=== PATIENT | female | born 2000 | race Caucasian/White ===

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

== ENCOUNTER 2019-08-10 21:35 | Emergency (ER) | payer OTHER ==
[~2019-08-10] VITALS: Ht 162.6 cm; Wt 72.6 kg
== END 2019-08-10 22:37 | disposition home or self-care (01) ==
LOC: ER 21:35
DX: J06.9 Acute upper respiratory infection, unspecified (principal)
CPT/HCPCS: 71046; 99283-25

== ENCOUNTER → 2019-08-10 | Outpatient (CLI) | payer OTHER ==
[2019-08-10 11:43] LABS: BASOPHILS ABSOLUTE AUTO 0.03 K/mm3 (0.00-0.23); BASOPHILS PERCENT AUTO 0 % (0-2); EOSINOPHILS ABSOLUTE AUTO 0.02 K/mm3 (0.00-0.68); EOSINOPHILS PERCENT AUTO 0 % (0-6); Hematocrit 38.7 % (33.0-51.0); Hemoglobin 13.1 g/dL (11.5-16.0); IMMATURE GRAN ABSOLUTE AUTO 0.02 K/mm3 (0.00-0.10); IMMATURE GRAN PERCENT AUTO 0 % (0-1); LYMPHOCYTES ABSOLUTE AUTO 0.25 K/mm3 (0.84-5.20); LYMPHOCYTES PERCENT AUTO 4 % (21-46); MONOCYTES ABSOLUTE AUTO 0.41 K/mm3 (0.16-1.47); MONOCYTES PERCENT AUTO 6 % (4-13); Mean Corpuscular HGB 30.7 pg (26.0-34.0); Mean Corpuscular HGB Conc 33.9 g/dL (31.5-36.5); Mean Corpuscular Volume 91 fL (80-100); Mean Platelet Volume 11.5 fL (9.1-12.4); NEUTROPHILS ABSOLUTE AUTO 6.29 K/mm3 (1.96-9.15); NEUTROPHILS PERCENT AUTO 90 % (41-73); Platelet Count 190 K/mm3 (150-400); RDW Coefficient Variation 12.5 % (11.7-14.2); RDW Standard Deviation 41.5 fL (35.1-46.3); Red Blood Cell Count 4.27 M/mm3 (3.80-5.20); White Blood Cell Count 7.02 K/mm3 (4.00-11.30)
[2019-08-10 12:04] LABS: Alanine Aminotransfer (ALT/SGP 82 U/L (12-78); Albumin, Blood 4.2 g/dL (3.4-5.0); Albumin/Globulin Ratio 1.3 (0.8-1.8); Alk Phos 62 U/L (40-126); Anion Gap 10 mmol/L (6-16); Aspartate Aminotrans (AST/SGOT 36 U/L (12-37); Bilirubin, Total 0.6 mg/dL (0.1-1.0); Blood Urea Nitrogen 10 mg/dL (8-24); Bun/Creatinine Ratio 12.8 (12.0-20.0); CO2, Blood 23 mmol/L (21-32); Calcium, Blood 9.4 mg/dL (8.5-10.1); Chloride, Blood 106 mmol/L (98-108); Creatinine, Blood 0.78 mg/dL (0.40-1.00); Globulin, Blood 3.3 g/dL (2.2-4.0); Glomerular Filtration Rate >60 (60-); Glucose, Blood 93 mg/dL (70-99); Sodium, Blood 139 mmol/L (136-145); Total Protein, Blood 7.5 g/dL (6.4-8.2)
== END | disposition home or self-care (01) ==
LOC: LAB SHORT 11:37 → LAB EV 11:37
PROVIDERS: Physician Assistant Medical
DX: R50.9 Fever, unspecified (principal)
CPT/HCPCS: 80053; 85025

== ENCOUNTER → 2020-08-07 | Outpatient (CLI) | payer OTHER ==
[2020-08-07 10:58] LABS: BASOPHILS ABSOLUTE AUTO 0.02 K/mm3 (0.00-0.23); BASOPHILS PERCENT AUTO 0 % (0-2); EOSINOPHILS ABSOLUTE AUTO 0.13 K/mm3 (0.00-0.68); EOSINOPHILS PERCENT AUTO 2 % (0-6); Hematocrit 36.3 % (33.0-51.0); Hemoglobin 12.1 g/dL (11.5-16.0); IMMATURE GRAN ABSOLUTE AUTO 0.03 K/mm3 (0.00-0.10); IMMATURE GRAN PERCENT AUTO 1 % (0-1); LYMPHOCYTES ABSOLUTE AUTO 1.87 K/mm3 (0.84-5.20); LYMPHOCYTES PERCENT AUTO 29 % (21-46); MONOCYTES ABSOLUTE AUTO 0.53 K/mm3 (0.16-1.47); MONOCYTES PERCENT AUTO 8 % (4-13); Mean Corpuscular HGB 29.7 pg (26.0-34.0); Mean Corpuscular HGB Conc 33.3 g/dL (31.5-36.5); Mean Corpuscular Volume 89 fL (80-100); Mean Platelet Volume 11.4 fL (9.1-12.4); NEUTROPHILS ABSOLUTE AUTO 3.99 K/mm3 (1.96-9.15); NEUTROPHILS PERCENT AUTO 61 % (41-73); Platelet Count 209 K/mm3 (150-400); RDW Coefficient Variation 12.3 % (11.7-14.2); RDW Standard Deviation 39.9 fL (35.1-46.3); Red Blood Cell Count 4.07 M/mm3 (3.80-5.20); White Blood Cell Count 6.57 K/mm3 (4.00-11.30)
[2020-08-07 10:59] LABS: Alanine Aminotransfer (ALT/SGP 26 U/L (12-78); Albumin, Blood 4.2 g/dL (3.4-5.0); Albumin/Globulin Ratio 1.3 (0.8-1.8); Alk Phos 58 U/L (40-126); Anion Gap 11 mmol/L (6-16); Aspartate Aminotrans (AST/SGOT 12 U/L (12-37); Bilirubin, Total 0.3 mg/dL (0.1-1.0); Blood Urea Nitrogen 11 mg/dL (8-24); CO2, Blood 25 mmol/L (21-32); Calcium, Blood 9.1 mg/dL (8.5-10.1); Chloride, Blood 103 mmol/L (98-108); Creatinine, Blood 0.55 mg/dL (0.40-1.00); Globulin, Blood 3.3 g/dL (2.2-4.0); Glomerular Filtration Rate >60 (60-); Glucose, Blood 99 mg/dL (70-99); Sodium, Blood 139 mmol/L (136-145); Total Protein, Blood 7.5 g/dL (6.4-8.2)
== END | disposition home or self-care (01) ==
LOC: LAB EV 10:44
PROVIDERS: Physician Assistant Medical
DX: R19.7 Diarrhea, unspecified (principal); R10.84 Generalized abdominal pain
CPT/HCPCS: 80053; 84702; 85025

== ENCOUNTER → 2021-04-14 | Outpatient (CLI) | payer OTHER ==
[2021-04-16 15:18] LABS: CORONAVIRUS (COVID19) CSH-NRL Negative (Negative)
== END | disposition home or self-care (01) ==
LOC: LAB SHORT 16:35 → LAB 16:35
PROVIDERS: Physician Assistant
DX: Z20.822 Contact with and (suspected) exposure to COVID-19 (principal)
CPT/HCPCS: U0003

== ENCOUNTER 2021-05-09 16:36 | Inpatient (IN) | payer OTHER ==
[~2021-05-09] VITALS: Ht 162.6 cm; Wt 102.0 kg
[2021-05-09] MEDS ORDERED: PRENATAL TABLE1 EAC2 PO (17:07)
[2021-05-09] MEDS ORDERED: ASPI81CH PO (17:08)
[2021-05-09 17:47] LABS: BASOPHILS ABSOLUTE AUTO 0.02 K/mm3 (0.00-0.23); BASOPHILS PERCENT AUTO 0 % (0-2); EOSINOPHILS ABSOLUTE AUTO 0.11 K/mm3 (0.00-0.68); EOSINOPHILS PERCENT AUTO 1 % (0-6); Hematocrit 32.8 % (33.0-51.0); Hemoglobin 10.3 g/dL (11.5-16.0); IMMATURE GRAN ABSOLUTE AUTO 0.06 K/mm3 (0.00-0.10); IMMATURE GRAN PERCENT AUTO 1 % (0-1); LYMPHOCYTES ABSOLUTE AUTO 1.58 K/mm3 (0.84-5.20); LYMPHOCYTES PERCENT AUTO 15 % (21-46); MONOCYTES ABSOLUTE AUTO 0.64 K/mm3 (0.16-1.47); MONOCYTES PERCENT AUTO 6 % (4-13); Mean Corpuscular HGB 26.1 pg (26.0-34.0); Mean Corpuscular HGB Conc 31.4 g/dL (31.5-36.5); Mean Corpuscular Volume 83 fL (80-100); NEUTROPHILS PERCENT AUTO 78 % (41-73); Platelet Count 193 K/mm3 (150-400); RDW Coefficient Variation 13.9 % (11.7-14.2); RDW Standard Deviation 42.5 fL (35.1-46.3); Red Blood Cell Count 3.94 M/mm3 (3.80-5.20); White Blood Cell Count 10.81 K/mm3 (4.00-11.30)
[2021-05-09 17:53] LABS: Mean Platelet Volume 13.4 fL (9.1-12.4)
[2021-05-12] MEDS ORDERED: IBUP800 PO (17:01)
[2021-05-12] MEDS ORDERED: DOCU100 PO (17:01)
[2021-05-13 05:21] LABS: Hematocrit 30.6 % (33.0-51.0); Hemoglobin 9.7 g/dL (11.5-16.0); Mean Corpuscular HGB 26.5 pg (26.0-34.0); Mean Corpuscular HGB Conc 31.7 g/dL (31.5-36.5); Mean Corpuscular Volume 84 fL (80-100); Mean Platelet Volume 12.6 fL (9.1-12.4); Platelet Count 203 K/mm3 (150-400); RDW Coefficient Variation 14.1 % (11.7-14.2); RDW Standard Deviation 43.2 fL (35.1-46.3); Red Blood Cell Count 3.66 M/mm3 (3.80-5.20); White Blood Cell Count 13.91 K/mm3 (4.00-11.30)
--- NOTE | 2021-05-13 16:54 | NUR ---
PT AWAKEN TO DISCUSS D/C TEACHING. PT DESIRES TO READ THROUGH D/C INSTRUCTIONS AND REQUESTS STAFF TO FEED NB THIS FEED WHILE SHE IS STILL WAKING UP. DISCUSSED THE IMPORTANCE OF HER AND FOB BEING INVOLVED WITH FEEDINGS. PT VERBALIZES UNDERSTANDING. PLAN TO D/C TO BOARDER STATUS TONIGHT. PT DECLINES NEED FOR ANY PAIN RX PRIOR TO D/C. SCRIPTS GIVEN.
--- NOTE | 2021-05-13 17:28 | NUR ---
D/C INSTRUCTIONS DISCUSSED AND SIGNED. PT REPORTS NO QUESTIONS AT THIS TIME. DENIES PAIN. ANAIS SELF CARE WELL. INSTRUCTED THAT SHE WILL BE ASSISTED WITH NB CARE. PT VERBALIZES UNDERSTANDING. NO QUESTIONS. . PT D/C TO BOARDER STATUS
== END 2021-05-13 17:30 | disposition home or self-care (01) | DRG 806 ==
LOC: OBS 16:36 → BC 16:37 → OBS 16:40 → BC 16:45
PROVIDERS: ADMIT Advanced Practice Midwife
PROC: 10E0XZZ Delivery of Products of Conception, External Approach (ICD-10-PCS; principal; 2021-05-12)
PROC: 3E033VJ Introduction of Other Hormone into Peripheral Vein, Percutaneous Approach (ICD-10-PCS; 2021-05-12)
PROC: 3E0P7VZ Introduction of Hormone into Female Reproductive, Via Natural or Artificial Opening (ICD-10-PCS; 2021-05-12)
PROC: 10907ZC Drainage of Amniotic Fluid, Therapeutic from Products of Conception, Via Natural or Artificial Opening (ICD-10-PCS; 2021-05-12)
PROC: 00HU33Z Insertion of Infusion Device into Spinal Canal, Percutaneous Approach (ICD-10-PCS; 2021-05-12)
PROC: 3E0R3BZ Introduction of Anesthetic Agent into Spinal Canal, Percutaneous Approach (ICD-10-PCS; 2021-05-12)
PROC: 3E0R3NZ Introduction of Analgesics, Hypnotics, Sedatives into Spinal Canal, Percutaneous Approach (ICD-10-PCS; 2021-05-12)
PROC: 0HQ9XZZ Repair Perineum Skin, External Approach (ICD-10-PCS; 2021-05-12)
DX: O24.420 Gestational diabetes mellitus in childbirth, diet controlled (principal); D62 Acute posthemorrhagic anemia; Z37.0 Single live birth; Z3A.39 39 weeks gestation of pregnancy; Z67.10 Type A blood, Rh positive; O34.03 Maternal care for unspecified congenital malformation of uterus, third trimester; Q51.28 Other and unspecified doubling of uterus; O99.03 Anemia complicating the puerperium; O43.123 Velamentous insertion of umbilical cord, third trimester; O76 Abnormality in fetal heart rate and rhythm complicating labor and delivery; O70.0 First degree perineal laceration during delivery
CPT/HCPCS: 36415; 51702; 82947; 85025; 85027; 86850; 86900; 86901; A9270; J2001; J2405; J2590; J3010; J7120

== ENCOUNTER → 2022-06-30 | Outpatient (CLI) | payer OTHER ==
[~2022-06-30] MED LIST: ACET500 PO; ASPI81CH PO; DOCU100 PO; IBU800 MG PO; IBUP800 PO; PRENATAL TABLE1 EAC2 PO; Percocet 5-3251 EACH PO; ROXICODONE5 MG PO
== END | disposition home or self-care (01) ==
LOC: LAB 16:43 → LAB SHORT 16:43
DX: N39.0 Urinary tract infection, site not specified (principal)
CPT/HCPCS: 87077; 87086; 87186

== ENCOUNTER → 2022-12-27 | Outpatient (CLI) | payer OTHER | END | disposition home or self-care (01) | LOC: LAB SHORT 15:20 → LAB 15:20 | DX: N39.0 Urinary tract infection, site not specified (principal) | CPT/HCPCS: 87077; 87086; 87186 ==

== ENCOUNTER → 2023-01-24 | Outpatient (CLI) | payer OTHER | END | disposition home or self-care (01) | LOC: LAB SHORT 15:34 → LAB 15:34 | DX: N39.0 Urinary tract infection, site not specified (principal) | CPT/HCPCS: 87077; 87086; 87186 ==

== ENCOUNTER → 2023-08-25 | Outpatient (CLI) | payer OTHER | LOC: LAB SHORT 14:45 → LAB 14:45 | DX: R39.15 Urgency of urination (principal) | CPT/HCPCS: 87077; 87086; 87186 ==

== ENCOUNTER → 2024-02-20 | Outpatient (CLI) | payer OTHER | END | disposition home or self-care (01) | LOC: LAB 12:36 → LAB SHORT 12:36 | DX: N39.0 Urinary tract infection, site not specified (principal) | CPT/HCPCS: 87086 ==

== ENCOUNTER 2024-06-19 01:46 | Observation (INO) | payer OTHER ==
[~2024-06-19] VITALS: Ht 160 cm; Wt 103.0 kg
[2024-06-19 01:55] VITALS: BP 117/59
[2024-06-19] MEDS ORDERED: Lactated Ringer's 1,000 ML IV ONE (02:30)
[2024-06-19 03:11] LABS: BASOPHILS ABSOLUTE AUTO 0.04 K/mm3 (0.00-0.23); BASOPHILS PERCENT AUTO 0 % (0-2); EOSINOPHILS ABSOLUTE AUTO 0.14 K/mm3 (0.00-0.68); EOSINOPHILS PERCENT AUTO 1 % (0-6); Hematocrit 35.3 % (33.0-51.0); Hemoglobin 11.8 g/dL (11.5-16.0); IMMATURE GRAN ABSOLUTE AUTO 0.12 K/mm3 (0.00-0.10); IMMATURE GRAN PERCENT AUTO 1 % (0-1); LYMPHOCYTES PERCENT AUTO 25 % (21-46); MONOCYTES ABSOLUTE AUTO 0.84 K/mm3 (0.16-1.47); MONOCYTES PERCENT AUTO 8 % (4-13); Mean Corpuscular HGB 29.6 pg (26.0-34.0); Mean Corpuscular HGB Conc 33.4 g/dL (31.5-36.5); Mean Corpuscular Volume 89 fL (80-100); Mean Platelet Volume 12.2 fL (9.1-12.4); NEUTROPHILS ABSOLUTE AUTO 7.17 K/mm3 (1.96-9.15); NEUTROPHILS PERCENT AUTO 64 % (41-73); Platelet Count 177 K/mm3 (150-400); RDW Standard Deviation 38.6 fL (35.1-46.3); Red Blood Cell Count 3.99 M/mm3 (3.80-5.20); White Blood Cell Count 11.11 K/mm3 (4.00-11.30)
[2024-06-19] MEDS ORDERED: Terbutaline Sulfate 1MG / ML 1 ML Amp SC ONE (04:50)
[2024-06-19 07:15] VITALS: BP 119/61
[2024-06-19] MEDS ORDERED: Zolpidem Tartrate 10 MG Tab PO ONE (08:00)
[2024-06-19 10:51] VITALS: BP 114/55
[2024-06-19 13:33] VITALS: BP 118/68
== END 2024-06-19 14:15 | disposition home or self-care (01) ==
LOC: BC 01:46 → OBS 01:46 → BC 01:48 → OBS 05:12 → BC 05:13
PROVIDERS: ADMIT Family Medicine
DX: O47.03 False labor before 37 completed weeks of gestation, third trimester (principal); Z3A.36 36 weeks gestation of pregnancy
CPT/HCPCS: 36415; 59025; 81003; 85025; 86850; 86900; 86901; 99214; A9270; J7120

== ENCOUNTER 2024-07-11 07:09 | Inpatient (IN) | payer OTHER ==
[2024-07-11] VITALS (18 sets, daily range): BP systolic 78–151; BP diastolic 56–85
[~2024-07-11] VITALS: Ht 160 cm; Wt 104.0 kg
[2024-07-11] MEDS ORDERED: Lactated Ringer's 1,000 ML IV ONE ×2 (07:33→07:54)
[2024-07-11] MEDS ORDERED: CeFAZolin Sodium 2,000 MG in NS 100 ML IV SCH ×2 (07:45→16:00)
[2024-07-11] MEDS ORDERED: Metoclopramide HCl 5MG / ML 2ML Vial ONE (07:47)
[2024-07-11] MEDS ORDERED: Citric Acid/Sodium Citrate 30 ML BTL ONE (07:48)
[2024-07-11 07:59] LABS: BASOPHILS ABSOLUTE AUTO 0.04 K/mm3 (0.00-0.23); BASOPHILS PERCENT AUTO 0 % (0-2); EOSINOPHILS ABSOLUTE AUTO 0.07 K/mm3 (0.00-0.68); EOSINOPHILS PERCENT AUTO 1 % (0-6); Hematocrit 39.2 % (33.0-51.0); Hemoglobin 13.4 g/dL (11.5-16.0); IMMATURE GRAN PERCENT AUTO 1 % (0-1); LYMPHOCYTES ABSOLUTE AUTO 2.13 K/mm3 (0.84-5.20); LYMPHOCYTES PERCENT AUTO 18 % (21-46); MONOCYTES ABSOLUTE AUTO 0.85 K/mm3 (0.16-1.47); MONOCYTES PERCENT AUTO 7 % (4-13); Mean Corpuscular HGB 29.6 pg (26.0-34.0); Mean Corpuscular HGB Conc 34.2 g/dL (31.5-36.5); Mean Corpuscular Volume 87 fL (80-100); Mean Platelet Volume 12.9 fL (9.1-12.4); NEUTROPHILS ABSOLUTE AUTO 8.97 K/mm3 (1.96-9.15); NEUTROPHILS PERCENT AUTO 74 % (41-73); Platelet Count 168 K/mm3 (150-400); RDW Coefficient Variation 12.5 % (11.7-14.2); RDW Standard Deviation 39.5 fL (35.1-46.3); Red Blood Cell Count 4.53 M/mm3 (3.80-5.20); White Blood Cell Count 12.16 K/mm3 (4.00-11.30)
[2024-07-11] MEDS ORDERED: FentaNYL Citrate 50 MCG/ML 2 ML Injection ONE ×2 (08:14→08:22)
[2024-07-11] MEDS ORDERED: Bupivacaine 0.75%/Dext 8.25% 2 ML Amp IT ONE (08:23)
[2024-07-11] MEDS ORDERED: Oxytocin 10 Unit / ML Vial ONE (09:00)
--- NOTE | 2024-07-11 09:10 | NUR ---
07/11/24 0910 Shahrzad Solitario VIABLE BABY BOY BORN AT 0850.
[2024-07-11 09:15] LABS: PO2 Cord - Arterial < 14.0 mmHg (16-20)
[2024-07-11 09:27] LABS: pH Cord - Arterial 7.18 (7.28-7.35)
[2024-07-11 09:28] LABS: PCO2 Cord - Arterial 72.7 mmHg (40-50)
[2024-07-11 09:32] LABS: PO2 Cord - Venous 20.9 mmHg (28-32)
[2024-07-11] MEDS ORDERED: Naproxen 500 MG Tab PO PRN (10:10)
[2024-07-11] MEDS ORDERED: Morphine Sulfate 4 MG/1 ML Injection IV PRN (10:10)
[2024-07-11] MEDS ORDERED: Misoprostol 200 MCG Tab PR PRN (10:10)
[2024-07-11] MEDS ORDERED: Lanolin Cream TOP PRN (10:10)
[2024-07-11] MEDS ORDERED: Promethazine HCl 12.5 MG Supp PR PRN (10:15)
[2024-07-11] MEDS ORDERED: Acetaminophen 500 MG Tab PO PRN (10:15)
[2024-07-11] MEDS ORDERED: Promethazine HCl 25 MG Supp PR PRN (10:15)
[2024-07-11] MEDS ORDERED: Methylergonovine Maleate 0.2MG / ML 1ML Amp IM PRN (10:15)
[2024-07-11] MEDS ORDERED: Magnesium Hydroxide Conc 10 ML UDC PO PRN (10:15)
[2024-07-11] MEDS ORDERED: Simethicone 80 MG Chew PO PRN (10:15)
[2024-07-11] MEDS ORDERED: Lactated Ringer's 1,000 ML IV SCH (10:15)
[2024-07-11] MEDS ORDERED: Ondansetron HCl 2 MG / ML 2ML Vial IV PRN (10:20)
[2024-07-11] MEDS ORDERED: Promethazine HCl 25 MG Tab PO PRN (10:20)
[2024-07-11] MEDS ORDERED: OxyCODONE 5 mg/Acetamin 325 mg TABLET PO PRN (10:20)
[2024-07-11] MEDS ORDERED: OXYTOCIN/RINGER'S LACTATE 500 ML IV SCH (10:20)
[2024-07-11] MEDS ORDERED: Tranexamic Acid 100 ML IV PRN (10:25)
[2024-07-11] MEDS ORDERED: Ketorolac Tromethamine 30mg Vial IV SCH (11:00)
[2024-07-11] MEDS ORDERED: Metoclopramide HCl 5MG / ML 2ML Vial IV ONE (13:35)
[2024-07-11] MEDS ORDERED: Citric Acid/Sodium Citrate 30 ML BTL PO ONE (13:35)
[2024-07-11] MEDS ORDERED: Docusate Sodium 100 MG Cap PO SCH (21:00)
[2024-07-12] VITALS (7 sets, daily range): BP systolic 109–137; BP diastolic 55–62
[2024-07-12] MEDS ORDERED: Naproxen 500 MG Tab PO PRN (05:00)
[2024-07-12 06:49] LABS: BASOPHILS ABSOLUTE AUTO 0.03 K/mm3 (0.00-0.23); BASOPHILS PERCENT AUTO 0 % (0-2); EOSINOPHILS ABSOLUTE AUTO 0.08 K/mm3 (0.00-0.68); EOSINOPHILS PERCENT AUTO 1 % (0-6); Hematocrit 32.9 % (33.0-51.0); Hemoglobin 10.9 g/dL (11.5-16.0); IMMATURE GRAN ABSOLUTE AUTO 0.05 K/mm3 (0.00-0.10); IMMATURE GRAN PERCENT AUTO 0 % (0-1); LYMPHOCYTES ABSOLUTE AUTO 1.82 K/mm3 (0.84-5.20); LYMPHOCYTES PERCENT AUTO 16 % (21-46); MONOCYTES ABSOLUTE AUTO 0.89 K/mm3 (0.16-1.47); MONOCYTES PERCENT AUTO 8 % (4-13); Mean Corpuscular HGB 30.1 pg (26.0-34.0); Mean Corpuscular HGB Conc 33.1 g/dL (31.5-36.5); Mean Corpuscular Volume 91 fL (80-100); Mean Platelet Volume 12.4 fL (9.1-12.4); NEUTROPHILS ABSOLUTE AUTO 8.47 K/mm3 (1.96-9.15); NEUTROPHILS PERCENT AUTO 75 % (41-73); Platelet Count 129 K/mm3 (150-400); RDW Coefficient Variation 12.8 % (11.7-14.2); Red Blood Cell Count 3.62 M/mm3 (3.80-5.20); White Blood Cell Count 11.34 K/mm3 (4.00-11.30)
[2024-07-12 06:57] LABS: Glucose, Blood 84 mg/dL (70-99)
[2024-07-12] MEDS ORDERED: Ketorolac Tromethamine 30mg Vial IV ONE (07:45)
[2024-07-12] MEDS ORDERED: Prenatal Vit/FE Fumarate/FA 1 Tab PO SCH (09:00)
[2024-07-12] MEDS ORDERED: Magnesium Hydroxide Conc 10 ML UDC PO SCH (21:00)
[2024-07-13 04:14] VITALS: BP 126/61
[2024-07-13 04:23] VITALS: BP 126/61
[2024-07-13 09:08] VITALS: BP 118/57
[2024-07-13] MEDS ORDERED: IBUP800 PO (12:01)
[2024-07-13] MEDS ORDERED: Percocet 5-3251 EACH PO (12:02)
[2024-07-13] MEDS ORDERED: DOCU100 PO (12:02)
[2024-07-13 12:40] VITALS: BP 133/66
== END 2024-07-13 13:50 | disposition home or self-care (01) | DRG 787 ==
LOC: OBS 07:09 → BC 07:10 → OBS 07:38 → BC 07:40
PROVIDERS: Obstetrics & Gynecology; ADMIT Advanced Practice Midwife
PROC: 10D00Z1 Extraction of Products of Conception, Low, Open Approach (ICD-10-PCS; principal; 2024-07-11 09:30)
DX: O32.1XX0 Maternal care for breech presentation, not applicable or unspecified (principal); O47.1 False labor at or after 37 completed weeks of gestation; O99.891 Other specified diseases and conditions complicating pregnancy; O34.219 Maternal care for unspecified type scar from previous cesarean delivery; M54.9 Dorsalgia, unspecified; O34.211 Maternal care for low transverse scar from previous cesarean delivery; Z3A.39 39 weeks gestation of pregnancy; Z37.0 Single live birth; O36.63X0 Maternal care for excessive fetal growth, third trimester, not applicable or unspecified; O99.02 Anemia complicating childbirth; Z79.899 Other long term (current) drug therapy
CPT/HCPCS: 36415; 51702; 59025; 81003; 82803; 82947; 85025; 86850; 86900; 86901; 86923; 99213; 99214; A9270; J0690; J1885; J2590; J2765; J3010; J7120

== ENCOUNTER → 2024-11-29 | Outpatient (CLI) | payer OTHER | LOC: LAB SHORT 16:37 → LAB 16:37 | DX: R30.0 Dysuria (principal) | CPT/HCPCS: 87077; 87086; 87186 ==

== ENCOUNTER → 2024-12-06 | Outpatient (CLI) | payer OTHER ==
[2024-12-06 20:14] LABS: Free Thyroxine 0.9 ng/dL (0.70-1.60)
[2024-12-06 20:17] LABS: Thyroid Stimulating Hormone 0.617 uIU/mL (0.360-4.800)
== END ==
LOC: LAB 19:26 → LAB SHORT 19:26
PROVIDERS: Advanced Practice Midwife
DX: L65.9 Nonscarring hair loss, unspecified (principal)
CPT/HCPCS: 84439; 84443